=== PATIENT | female | born 1960 | race Caucasian/White ===

== ENCOUNTER → 2016-08-03 | Outpatient (CLI) | payer BC ==
[~2016-08-03] MED LIST: ALPR0.5T PO; AMOX1TAB12 PO; GFN600TCR PO; NF-FLON16G; [UNRECOGNIZED DRUG - REMARK]
[2016-08-03 18:52] VITALS: BP 126/87
--- NOTE | 2016-08-03 18:52 | Urgent Care T Sheet Gen (E) ---
Intake General Temperature (Fahrenheit): 98.4 Pulse: 107 Blood Pressure Systolic: 126 Blood Pressure Diastolic: 87 Respirations: 19 Chief Complaint: sinus congestion Source: Patient History of Present Illness Initial Comments Pt notes sinus congestion for over 2 weeks. She notes about 2 weeks ago she say her PCP and was diagnosed with a "sinus infection". She was placed on Z-garfield. She notes about day 5 of z-garfield she was doing better and now all symptoms have return. C/o ear pressure, left maxillary sinus pressure and congestion. She is taking flonase and claritin. She notes that her left eye has been red and dry for the last 5-7 days. No discharge or pain. She does wear contacts. Allergies: Coded Allergies: No Known Drug Allergies (Unverified , 03/27/14) Home Meds Active Scripts Amoxicillin/Clavulanate Potassium (Augmentin 875mg/125mg)1 Each Tablet1 Tab PO BID #14 TAB Ref 0 Prov:MINA RAI 08/05/15 Fluticasone Propionate (Flonase 0.05% Nasal [place])16 Gm Spray2 Sprays NA DAILY # 1 SPRAY Prov:GLEN DOUGHERTY DO 03/27/14 Guaifenesin (Mucinex)600 Mg [id number] Mg PO BID #20 TAB Prov:GLEN DOUGHERTY DO 03/27/14 Reported Medications [unknown diet pill] No Conflict Check 03/27/14 Alprazolam (Xanax)0.5 Mg Tablet0.5 Mg PO PRN PRN ANXIETY 03/27/14 Respiratory Constitutional Symptoms: No syptoms reported EENTM: See HPI Nose Congestion Respiratory: No symptoms reported Cardiovascular: No symptoms reported Gastrointestinal/Abdominal: No symptoms reported Skin: No symptoms reported All Other Systems Reviewed Remaining Systems: All other systems reviewed with negative findings Past Onbadul-Eeipwy-Qfclph Hx Patient's Social History Alcohol Use: Occasionally Uses Smoking Status: Former smoker Recent foreign travel: No Surgeries/Hospitalizations Hospitalization/Surgery Hx: no significant past medical hx Respiratory Respiratory History: None Cardiovascular Cardiovascular History: None Reproductive System Sexually Transmitted Diseases: No Gastrointestinal GI/Endocrine History: None Diabetes Diabetes: No HEENT Impaired Vision: None Hearing Impaired: None Psychosocial Behavior Disorders: None Physical Exam Physical Exam General Appearance: WD/WN No apparent distress Eyes, Ears, Nose, Throat Ex: PERRL/EOMI Pharynx normal TM abnormal (R) (dull TM but no erythema) TM abnormal (L) (dull TM but no erythema) Other (bilat conjunctiva injected (L slightly greater than the right).) Neck Exam: Non tender Full range of motion Normal inspection Normal thyroid Respiratory Exam: Lungs clear Normal breath sounds No respiratory distress Cardiovascular Exam: Regular rate, rhythm No edema Skin Exam: No rashes Departure Urgent Care Impression Chief Complaint: sinus congestion Impression: Primary Impression: Sinusitis, acute maxillary Qualified Code: J01.00 - Acute maxillary sinusitis, unspecified Departure Disposition: HOME OR SELF-CARE Condition: Stable Referrals: EARL HERRERA MD (PCP) Additional Instructions: Take Augmentin as prescribed below. Continue Flonase. I suspect her conjunctivitis is more from dry eyes. Recommend giving her eyes a break from her contacts for several days. Her OTC claritin may be causing it. She reports she is also taking Phentermine and that can cause it too. She will f /u with her eye doctor to further evaluate this. Follow-up with Primary Care Provider in 7-10 days. Return to ER or UC if symptoms get worse or further concern. Discharge instructions verbally given to Patient. Patient verbalize understanding of discharge instruction Scripts Amoxicillin/Clavulanate Potassium (Augmentin 875mg/125mg)1 Each Tablet1 Tab PO BID Infection #20 TAB Ref 0 Prov:BAILEY MYERS 08/03/16 End of report . BAILEY MYERS August 03, 2016 18:52
== END ==
LOC: MHUC 18:17
PROVIDERS: ATTEND Physician Assistant
DX: J01.00 Acute maxillary sinusitis, unspecified (principal)
CPT/HCPCS: 99213